=== PATIENT | female | born 1985 | race Caucasian/White ===

== ENCOUNTER 2018-09-21 13:01 | Inpatient (IN) | payer OTHER ==
[2018-09-21] MEDS ORDERED: Nalbuphine 20 MG/ML 1 ML Syringe IVPUSH PRN (13:23)
[2018-09-21] MEDS ORDERED: Lidocaine 1% 50 ML MDV INJECT ONE (13:23)
[2018-09-21] MEDS ORDERED: Sodium Chloride 0.9% 10 ML Syringe FLUSH PRN (13:23)
[2018-09-21] MEDS ORDERED: Ondansetron 4 MG/2 ML SDV IVPUSH PRN ×2 (13:23→14:13)
[2018-09-21] MEDS ORDERED: Oxytocin/Lactated Ringers 10 UNIT/1,000 ML BAG IV SCH ×2 (13:30→16:00)
[2018-09-21] MEDS: Lactated Ringers 1,000 ML IV SCH ×3 (13:49→19:31)
[2018-09-21] MEDS ORDERED: Ampicillin 2 GM in Sodium Chloride 0.9% 100 ML IV ONE (14:00)
[2018-09-21] MEDS ORDERED: ePHEDrine 50 MG/ML SDV IVPUSH PRN (14:13)
[2018-09-21] MEDS ORDERED: diphenhydrAMINE 50 MG/ML SDV IVPUSH PRN (14:13)
[2018-09-21] MEDS ORDERED: fentaNYL/Bupivacaine-NS 2 MCG/ML-0.125%/PF 100 ML Bag EPIDUR PRN (14:13)
[2018-09-21] MEDS ORDERED: fentaNYL 100 MCG/2 ML SDV EPIDUR PRN (14:13)
--- NOTE | 2018-09-21 17:15 | PCM.LDHP ---
L&D History of Present Illness - General Date of Service: 09/21/18 Admit Problem/Dx: Patient Status Order with Admit Dx/Problem 09/21/18 13:24 Patient Status [ADT] Routine Admission Diagnosis/Problem Admission Diagnosis/Problem Normal labor Source of Information: Patient History Limitations: Reports: No Limitations - History of Present Illness Introduction:: Patient is a 32 y/o at 36 3/7 wks who presents with PROM. Doing well since. Occurred at about 1300 today. No other issues. 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 Para: 2 LMP (Approximate): - Past Surgical History HEENT Surgical History: Reports: Tonsillectomy Social & Family History - Family History Family Medical History: Noncontributory - Tobacco Use Smoking Status *Q: Never Smoker - Caffeine Use Caffeine Use: Reports: None - Alcohol Use Alcohol Use History: No - Recreational Drug Use Recreational Drug Use: No H&P Review of Systems - Review of Systems: Review Of Systems: See Below General: Reports: No Symptoms Pulmonary: Reports: No Symptoms Cardiovascular: Reports: No Symptoms Gastrointestinal: Reports: No Symptoms Genitourinary: Reports: No Symptoms Musculoskeletal: Reports: No Symptoms Psychiatric: Reports: No Symptoms L&D Exam - Exam Exam: See Below - Vital Signs Vital Signs: Last Vital Signs Temp 37.2 C 09/21/18 13:48 Pulse 77 09/21/18 16:24 Resp 16 09/21/18 13:48 BP 129/78 09/21/18 16:24 Pulse Ox 99 09/21/18 13:48 Weight: 86.364 kg - OB Specific Contraction Intensity: Irritability Movement: Active Heart Tones: Present Heart Tones per Min: 135 Heart Rate (FHR) Variability: Moderate (6-25 bmp) Presentation: Vertex - Patel Score Patel Score Cervix Position: Midposition Patel Score Consistency: Soft Patel Score Effacement: 51-70% Patel Score Dilation: 1-2 cm Patel Score Infant's Station: -2 Patel Score Total: 7 - Exam General: Alert, Oriented, Cooperative Lungs: Clear to Auscultation, Normal Respiratory Effort Cardiovascular: Regular Rate, Regular Rhythm GI/Abdominal Exam: Soft, Non-Tender Genitourinary: Normal external exam Extremities: Normal Inspection Skin: Warm, Dry, Intact - Patient Data Lab Results Last 24 hrs: Laboratory Results - last 24 hr 09/21/18 Range/Units 13:28 WBC 9.22 (3.98-10.04) K/mm3 RBC 4.33 (3.98-5.22) M/mm3 Hgb 13.8 (11.2-15.7) gm/L Hct 39.4 (34.1-44.9) % MCV 91.0 (79.4-94.8) fl MCH 31.9 (25.6-32.2) pg MCHC 35.0 (32.2-35.5) g/dl RDW Std Deviation 43.0 (36.4-46.3) fL Plt Count 169 L (182-369) K/mm3 MPV 9.4 (9.4-12.3) fl Neut % (Auto) 73.1 H (34.0-71.1) % Lymph % (Auto) 19.3 (19.3-51.7) % [place] % (Auto) 6.1 (4.7-12.5) % Eos % (Auto) 0.4 L (0.7-5.8) Baso % (Auto) 0.2 (0.1-1.2) % Neut # (Auto) 6.74 H (1.56-6.13) K/mm3 Lymph # (Auto) 1.78 (1.18-3.74) K/mm3 [place] # (Auto) 0.56 H (0.24-0.36) K/mm3 Eos # (Auto) 0.04 (0.04-0.36) K/mm3 Baso # (Auto) 0.02 (0.01-0.08) K/mm3 Result Diagrams: 09/21/18 13:28 - Problem List (1) 36 weeks gestation of SNOMED Code(s): 94727089 ICD Code: Z3A.36 - 36 WEEKS GESTATION OF Status: Acute Current Visit: Yes (2) PROM (premature rupture of membranes) SNOMED Code(s): 97951442 ICD Code: O42.90 - ELIZBAETH ROM, 7TH0 BETW RUPT & ONST LABR, UNSP WEEKS OF GEST Status: Acute Current Visit: Yes Qualifiers: PROM onset of labor timing: unspecified duration between rupture of membranes and onset of labor PROM gestational age: -third trimester Qualified Code(s): O42.913 - premature rupture of membranes, unspecified as to length of time between rupture and onset of labor, third trimester (3) GBS carrier SNOMED Code(s): 0012750263622 ICD Code: Z22.330 - CARRIER OF GROUP B STREPTOCOCCUS Status: Acute Current Visit: Yes Problem List Initiated/Reviewed/Updated: Yes Orders Last 24hrs: Active Orders 24 hr Category Date Time Status Patient Status [ADT] Routine ADT 09/21/18 13:24 Active Activity as Tolerated [RC] PFP Care 09/21/18 13:24 Active Communication Order [RC] ASDIRECTED Care 09/21/18 13:24 Active Heart Tones [RC] ASDIRECTED Care 09/21/18 13:24 Active Non Stress Test [RC] PER UNIT ROUTINE Care 09/21/18 13:24 Active Notify Provider [RC] ASDIRECTED Care 09/21/18 14:13 Active Notify Provider [RC] PFP Care 09/21/18 13:24 Active Notify Provider [RC] PRN Care 09/21/18 13:24 Active Peripheral IV Care [RC] . DIRECTED Care 09/21/18 13:24 Active Vital Signs [RC] PER UNIT ROUTINE Care 09/21/18 13:24 Active Regular Diet [DIET] Diet 09/21/18 Lunch Active RAPID PLASMA REAGIN,RPR [CHEM] Routine Lab 09/21/18 13:28 Received Ampicillin 1 gm Med 09/21/18 18:00 Active Sodium Chloride 0.9% [Normal Saline] 100 ml IV Q4H Lactated Ringers [Ringers, Lactated] 1,000 ml Med 09/21/18 13:30 Active IV ASDIRECTED Nalbuphine [Nubain] Med 09/21/18 13:23 Active 10 mg IVPUSH Q2H PRN Ondansetron [Zofran] Med 09/21/18 14:13 Active 4 mg IVPUSH ONETIME PRN Ondansetron [Zofran] Med 09/21/18 13:23 Active 4 mg IVPUSH Q4H PRN Oxytocin/Lactated Ringers [Pitocin in LR 10 Units/1,000 Med 09/21/18 13:30 Active ML] 10 unit in 1,000 ml IV .CONTINUOUS Oxytocin/Lactated Ringers [Pitocin in LR 10 Units/1,000 Med 09/21/18 16:00 Active ML] 10 unit in 1,000 ml IV TITRATE Sodium Chloride 0.9% [Saline Flush] Med 09/21/18 13:23 Active 10 ml FLUSH ASDIRECTED PRN diphenhydrAMINE [Benadryl] Med 09/21/18 14:13 Active 25 mg IVPUSH Q6H PRN ePHEDrine [ePHEDrine sulfate] Med 09/21/18 14:13 Active 5 mg IVPUSH ASDIRECTED PRN fentaNYL [Sublimaze] Med 09/21/18 14:13 Active 100 mcg EPIDUR ONETIME PRN fentaNYL/Bupivacaine/NS/PF [xdhjtBXA-Azvcu-SW 2 MCG/ML- Med 09/21/18 14:13 Active 0.125%] 100 ml EPIDUR ASDIRECTED PRN Electronic Heart Tones Ext w TOCO [WOMSER] Oth 09/21/18 13:24 Ordered Routine Electronic Heart Tones Internal [WOMSER] Per Unit Oth 09/21/18 13:24 Ordered Routine Peripheral IV Insertion Adult [OM.PC] Routine Oth 09/21/18 13:24 Ordered Resuscitation Status Routine Resus Stat 09/21/18 13:23 Ordered Medication Orders Diphenhydramine HCl (Benadryl) 25 mg IVPUSH Q6H PRN PRN Reason: Pruritis Ephedrine Sulfate (Ephedrine Sulfate) 5 mg IVPUSH ASDIRECTED PRN PRN Reason: Hypotension Fentanyl (Sublimaze) 100 mcg EPIDUR ONETIME PRN PRN Reason: Pain Fentanyl/Bupivacaine HCl (Fmpxmbsd-Oaayf-Hh 2 Mcg/Ml-0.125%) 100 ml EPIDUR ASDIRECTED PRN PRN Reason: Pain (severe 7-10) Ampicillin Sodium 1 gm/ Sodium (Chloride) 100 mls @ 200 mls/hr IV Q4H TYLER Lactated Ringer's (Ringers, Lactated) 1,000 mls @ 100 mls/hr IV ASDIRECTED TYLER Last Admin: 09/21/18 13:49 Dose: 100 mls/hr Oxytocin/Lactated Ringer's (Pitocin In Lr 10 Units/1,000 Ml) 10 unit in 1,000 mls @ 500 mls/hr IV .CONTINUOUS TYLER Oxytocin/Lactated Ringer's (Pitocin In Lr 10 Units/1,000 Ml) 10 unit in 1,000 mls @ 12 mls/hr IV TITRATE TYLER; Protocol Last Titration: 09/21/18 16:44 Dose: 4 munits/min, 24 mls/hr Admin: 09/21/18 16:19 Dose: 2 munits/min, 12 mls/hr Nalbuphine HCl (Nubain) 10 mg IVPUSH Q2H PRN PRN Reason: pain Ondansetron HCl (Zofran) 4 mg IVPUSH Q4H PRN PRN Reason: Nausea/Vomiting Ondansetron HCl (Zofran) 4 mg IVPUSH ONETIME PRN PRN Reason: Nausea/Vomiting Sodium Chloride (Saline Flush) 10 ml FLUSH ASDIRECTED PRN PRN Reason: Keep Vein Open Assessment/Plan Comment:: 32 y/o at 36 3/7 wks presents with PROM * Labs * GBS positive, getting ampicillin * Now that almost 4 hours treated with start pitocin for augmentation * Pain management per patient preference * anticipate
[2018-09-21] MEDS ORDERED: Ampicillin 1 GM in Sodium Chloride 0.9% 100 ML IV SCH (18:00)
--- NOTE | 2018-09-21 19:20 | PCM.PREANE ---
Preanesthetic Assessment - Anesthesia/Transfusion/Family Hx Anesthesia History: Prior Anesthesia Without Reaction Family History of Anesthesia Reaction: No Transfusion History: No Prior Transfusion(s) - Review of Systems General: No Symptoms Pulmonary: No Symptoms Cardiovascular: No Symptoms Gastrointestinal: No Symptoms Neurological: No Symptoms Other: Reports: None - Physical Assessment Pulse: 77 O2 Sat by Pulse Oximetry: 99 Respiratory Rate: 16 Blood Pressure: 129/78 Vital Signs: Last Vital Signs Temp 37.2 C 09/21/18 13:48 Pulse 77 09/21/18 16:24 Resp 16 09/21/18 13:48 BP 129/78 09/21/18 16:24 Pulse Ox 99 09/21/18 13:48 Height: 1.68 m Weight: 86.364 kg ASA Class: 2 Mental Status: Alert & Oriented x3 Airway Class: Mallampati = 1 Dentition: Reports: Normal Dentition Thyro-Mental Finger Breadths: 3 Mouth Opening Finger Breadths: 3 ROM/Head Extension: Full Lungs: Clear to Auscultation, Normal Respiratory Effort Cardiovascular: Regular Rate, Regular Rhythm - Lab Values: Laboratory Last Values WBC 9.22 K/mm3 (3.98-10.04) 09/21/18 13:28 RBC 4.33 M/mm3 (3.98-5.22) 09/21/18 13:28 Hgb 13.8 gm/L (11.2-15.7) 09/21/18 13:28 Hct 39.4 % (34.1-44.9) 09/21/18 13:28 MCV 91.0 fl (79.4-94.8) 09/21/18 13:28 MCH 31.9 pg (25.6-32.2) 09/21/18 13:28 MCHC 35.0 g/dl (32.2-35.5) 09/21/18 13:28 RDW Std Deviation 43.0 fL (36.4-46.3) 09/21/18 13:28 Plt Count 169 K/mm3 (182-369) L 09/21/18 13:28 MPV 9.4 fl (9.4-12.3) 09/21/18 13:28 Neut % (Auto) 73.1 % (34.0-71.1) H 09/21/18 13:28 Lymph % (Auto) 19.3 % (19.3-51.7) 09/21/18 13:28 [place] % (Auto) 6.1 % (4.7-12.5) 09/21/18 13:28 Eos % (Auto) 0.4 (0.7-5.8) L 09/21/18 13:28 Baso % (Auto) 0.2 % (0.1-1.2) 09/21/18 13:28 Neut # (Auto) 6.74 K/mm3 (1.56-6.13) H 09/21/18 13:28 Lymph # (Auto) 1.78 K/mm3 (1.18-3.74) 09/21/18 13:28 [place] # (Auto) 0.56 K/mm3 (0.24-0.36) H 09/21/18 13:28 Eos # (Auto) 0.04 K/mm3 (0.04-0.36) 09/21/18 13: Baso # (Auto) 0.02 K/mm3 (0.01-0.08) 09/21/18 13:28 - Allergies Allergies/Adverse Reactions: Allergies Allergy/AdvReac Type Severity Reaction Status Date / Time No Known Allergies Allergy Verified 09/21/18 13:23 - Acknowledgements Anesthesia Type Planned: Epidural Pt an Appropriate Candidate for the Planned Anesthesia: Yes Alternatives and Risks of Anesthesia Discussed w Pt/Guardian: Yes Pt/Guardian Understands and Agrees with Anesthesia Plan: Yes PreAnesthesia 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: - Past Surgical History HEENT Surgical History: Reports: Tonsillectomy - SUBSTANCE USE Smoking Status *Q: Never Smoker Recreational Drug Use History: No - HOME MEDS Home Medications: Home Meds PNV95/Ferrous Fumarate/FA [ Tablet] 1 each PO DAILY 09/21/18 [History] - CURRENT (IN HOUSE) MEDS Current Meds: Current Medications Diphenhydramine HCl (Benadryl) 25 mg IVPUSH Q6H PRN PRN Reason: Pruritis Ephedrine Sulfate (Ephedrine Sulfate) 5 mg IVPUSH ASDIRECTED PRN PRN Reason: Hypotension Fentanyl (Sublimaze) 100 mcg EPIDUR ONETIME PRN PRN Reason: Pain Fentanyl/Bupivacaine HCl (Wnzivxyc-Mzjrc-Zi 2 Mcg/Ml-0.125%) 100 ml EPIDUR ASDIRECTED PRN PRN Reason: Pain (severe 7-10) Ampicillin Sodium 1 gm/ Sodium (Chloride) 100 mls @ 200 mls/hr IV Q4H [facility] Last Admin: 09/21/18 17:35 Dose: 200 mls/hr Lactated Ringer's (Ringers, Lactated) 1,000 mls @ 100 mls/hr IV ASDIRECTED TYLER Last Admin: 09/21/18 18:33 Dose: 100 mls/hr Oxytocin/Lactated Ringer's (Pitocin In Lr 10 Units/1,000 Ml) 10 unit in 1,000 mls @ 500 mls/hr IV .CONTINUOUS TYLER Oxytocin/Lactated Ringer's (Pitocin In Lr 10 Units/1,000 Ml) 10 unit in 1,000 mls @ 12 mls/hr IV TITRATE TYLER; Protocol Last Titration: 09/21/18 17:30 Dose: 5 munits/min, 30 mls/hr Nalbuphine HCl (Nubain) 10 mg IVPUSH Q2H PRN PRN Reason: pain Ondansetron HCl (Zofran) 4 mg IVPUSH Q4H PRN PRN Reason: Nausea/Vomiting Ondansetron HCl (Zofran) 4 mg IVPUSH ONETIME PRN PRN Reason: Nausea/Vomiting Sodium Chloride (Saline Flush) 10 ml FLUSH ASDIRECTED PRN PRN Reason: Keep Vein Open Discontinued Medications Ampicillin Sodium 2 gm/ Sodium (Chloride) 100 mls @ 200 mls/hr IV ONETIME ONE Stop: 09/21/18 14:29 Last Admin: 09/21/18 13:49 Dose: 200 mls/hr Lidocaine HCl (Xylocaine 1%) 50 ml INJECT ASDIRECTED ONE Stop: 09/21/18 13:24
--- NOTE | 2018-09-21 21:03 | PCM.SN ---
- Free Text/Narrative Note: Stage I - Patient presented with PROM. Contractions became more painful. Progressed to complete with epidural and overall reassuring FHT. Stage II - of viable female, weight 5#8oz, apgars 8/9 at 2024. Head delivered in controlled manner over intact perineum. Body and shoulders followed without difficultly. Baby placed on maternal abdomen. Positive cry. Cord clamped and cut. Stage III - of intact placenta. 3VC. Small 1st degree repaired with 3-0 vicryl. EBL 100.
[2018-09-21] MEDS ORDERED: Docusate Sodium 100 MG Cap PO PRN (21:08)
[2018-09-21] MEDS ORDERED: Witch Hazel Medicated Pads 40/Jar TOP PRN (21:08)
[2018-09-21] MEDS ORDERED: Lanolin 100% Cream 7 GM Tube TOP PRN (21:08)
[2018-09-21] MEDS ORDERED: Benzocaine/Menthol 20%-0.5% Spray 56 GM Canister TOP PRN (21:08)
[2018-09-21] MEDS ORDERED: Bupivacaine 0.25% 10 ML SDV ONE (22:00)
[2018-09-22] MEDS: Ibuprofen 600 MG Tab PO PRN ×4 (00:37→21:33)
--- NOTE | 2018-09-22 03:54 | PCM.PNPP ---
- General Info Date of Service: 09/22/18 Functional Status: Reports: Pain Controlled - Review of Systems General: Reports: No Symptoms HEENT: Reports: No Symptoms Pulmonary: Reports: No Symptoms Cardiovascular: Reports: No Symptoms Gastrointestinal: Reports: No Symptoms Genitourinary: Reports: No Symptoms Musculoskeletal: Reports: No Symptoms Skin: Reports: No Symptoms Neurological: Reports: No Symptoms Psychiatric: Reports: No Symptoms - General Info Date of Service: 09/22/18 - Patient Data Vital Signs - Most Recent: Last Vital Signs Temp 36.7 C 09/21/18 23:33 Pulse 62 09/21/18 23:33 Resp 16 09/21/18 23:33 BP 137/36 L 09/21/18 23:33 Pulse Ox 98 09/21/18 23:33 Weight - Most Recent: 86.364 kg I&O - Last 24 Hours: Intake & Output 09/21/18 09/21/18 09/22/18 14:59 22:59 06:59 Intake Total 100 3560 Balance 100 3560 Lab Results - Last 24 Hours: Laboratory Results - last 24 hr 09/21/18 Range/Units 13:28 WBC 9.22 (3.98-10.04) K/mm3 RBC 4.33 (3.98-5.22) M/mm3 Hgb 13.8 (11.2-15.7) gm/L Hct 39.4 (34.1-44.9) % MCV 91.0 (79.4-94.8) fl MCH 31.9 (25.6-32.2) pg MCHC 35.0 (32.2-35.5) g/dl RDW Std Deviation 43.0 (36.4-46.3) fL Plt Count 169 L (182-369) K/mm3 MPV 9.4 (9.4-12.3) fl Neut % (Auto) 73.1 H (34.0-71.1) % Lymph % (Auto) 19.3 (19.3-51.7) % [place] % (Auto) 6.1 (4.7-12.5) % Eos % (Auto) 0.4 L (0.7-5.8) Baso % (Auto) 0.2 (0.1-1.2) % Neut # (Auto) 6.74 H (1.56-6.13) K/mm3 Lymph # (Auto) 1.78 (1.18-3.74) K/mm3 [place] # (Auto) 0.56 H (0.24-0.36) K/mm3 Eos # (Auto) 0.04 (0.04-0.36) K/mm3 Baso # (Auto) 0.02 (0.01-0.08) K/mm3 Med Orders - Current: Current Medications Benzocaine/Menthol (Dermoplast Pain Relief [place]) 0 gm TOP ASDIRECTED PRN PRN Reason: Perineal Comfort Measure Docusate Sodium (Colace) 100 mg PO BID PRN PRN Reason: Constipation Emollient Ointment (Lansinoh Hpa) 0 gm TOP ASDIRECTED PRN PRN Reason: Sore Nipples Ibuprofen (Motrin) 600 mg PO Q6H PRN PRN Reason: Mild pain or fever Last Admin: 09/22/18 00:37 Dose: 600 mg Witch Sherley (Tucks) 1 pad TOP ASDIRECTED PRN PRN Reason: Pain Discontinued Medications Diphenhydramine HCl (Benadryl) 25 mg IVPUSH Q6H PRN PRN Reason: Pruritis Ephedrine Sulfate (Ephedrine Sulfate) 5 mg IVPUSH ASDIRECTED PRN PRN Reason: Hypotension Fentanyl (Sublimaze) 100 mcg EPIDUR ONETIME PRN PRN Reason: Pain Last Admin: 09/21/18 19:20 Dose: 100 mcg Fentanyl/Bupivacaine HCl (Eszoeaig-Djbwb-Ww 2 Mcg/Ml-0.125%) 100 ml EPIDUR ASDIRECTED PRN PRN Reason: Pain (severe 7-10) Last Admin: 09/21/18 19:21 Dose: 100 ml Ampicillin Sodium 2 gm/ Sodium (Chloride) 100 mls @ 200 mls/hr IV ONETIME ONE Stop: 09/21/18 14:29 Last Admin: 09/21/18 13:49 Dose: 200 mls/hr Ampicillin Sodium 1 gm/ Sodium (Chloride) 100 mls @ 200 mls/hr IV Q4H [facility] Last Admin: 09/21/18 17:35 Dose: 200 mls/hr Lactated Ringer's (Ringers, Lactated) 1,000 mls @ 100 mls/hr IV ASDIRECTED [facility] Last Admin: 09/21/18 19:31 Dose: 100 mls/hr Oxytocin/Lactated Ringer's (Pitocin In Lr 10 Units/1,000 Ml) 10 unit in 1,000 mls @ 500 mls/hr IV .CONTINUOUS TYLER Oxytocin/Lactated Ringer's (Pitocin In Lr 10 Units/1,000 Ml) 10 unit in 1,000 mls @ 12 mls/hr IV TITRATE TYLER; Protocol Last Titration: 09/21/18 20:25 Dose: 999 munits/min, 5,994 mls/hr Lidocaine HCl (Xylocaine 1%) 50 ml INJECT ASDIRECTED ONE Stop: 09/21/18 13:24 Nalbuphine HCl (Nubain) 10 mg IVPUSH Q2H PRN PRN Reason: pain Ondansetron HCl (Zofran) 4 mg IVPUSH Q4H PRN PRN Reason: Nausea/Vomiting Ondansetron HCl (Zofran) 4 mg IVPUSH ONETIME PRN PRN Reason: Nausea/Vomiting Sodium Chloride (Saline Flush) 10 ml FLUSH ASDIRECTED PRN PRN Reason: Keep Vein Open - Interaction Infant Disposition, : [place] to Nursery Support Person: - Exam General: Alert, Oriented HEENT: Pupils Equal Neck: Supple Lungs: Clear to Auscultation, Normal Respiratory Effort Cardiovascular: Regular Rate, Regular Rhythm GI/Abdominal Exam: Normal Bowel Sounds, Soft, Non-Tender, No Organomegaly, No Distention, No Abnormal Bruit, No Mass, Pelvis Stable Extremities: Normal Inspection, Normal Range of Motion, Non-Tender, No Pedal Edema, Normal Capillary Refill Skin: Intact Neurological: No New Focal Deficit Psy/Mental Status: Alert, Normal Affect, Normal Mood - Problem List Review Problem List Initiated/Reviewed/Updated: Yes - My Orders Last 24 Hours: My Active Orders 09/21/18 21:08 Activity as Tolerated [RC] PER UNIT ROUTINE Vital Signs [RC] 03,09,15,21 Benzocaine/Menthol [Dermoplast Pain Relief [place]] See Dose Instructions TOP ASDIRECTED PRN Docusate Sodium [Colace] 100 mg PO BID PRN Ibuprofen [Motrin] 600 mg PO Q6H PRN Lanolin [Lansinoh HPA] See Dose Instructions TOP ASDIRECTED PRN Witch Sherley [Tucks] 1 pad TOP ASDIRECTED PRN Assess Lochia [WOMSER] Per Unit Routine Assess Uterine Involution [WOMSER] Per Unit Routine Breast Pump [WOMSER] Per Unit Routine Heat Therapy [OM.PC] PRN Medication Administration Instruction [OM.PC] Routine Perineal Care [OM.PC] Per Unit Routine Sitz Bath [OM.PC] Per Unit Routine 09/22/18 21:08 Heat Therapy [OM.PC] PRN - Assessment Assessment:: PPD 1 s/p at 36 weeks. - Plan Plan:: 32 y/o s/p at 36 3/7 wks Doing well. No issues.
--- NOTE | 2018-09-22 07:45 | PCM48HPAN ---
Post Anesthesia Note - EVALUATION WITHIN 48HRS OF ANESTHETIC Vital Signs in Normal Range: Yes Patient Participated in Evaluation: Yes Respiratory Function Stable: Yes Airway Patent: Yes Cardiovascular Function Stable: Yes Hydration Status Stable: Yes Pain Control Satisfactory: Yes Nausea and Vomiting Control Satisfactory: Yes Mental Status Recovered: Yes Pulse Rate: 72 Resp Rate: 16 Temperature: 36.7 C Blood Pressure: 127/80 - COMMENTS/OBSERVATIONS Free Text/Narrative:: no anesthesia complications noted
[2018-09-23] MEDS: Ibuprofen 600 MG Tab PO PRN ×2 (03:58→11:55)
--- NOTE | 2018-09-23 10:48 | PCM.DCSUM1 ---
Discharge Summary - Hospital Course Free Text/Narrative:: Patient is a 32 y/o at 36 3/7 wks who presents with PROM. Doing well since. Occurred at about 1300 today. No other issues. Only experiencing mild contractions Patient went on to have normal vaginal delivery. Female . She is breast- feeding. She is ambulating well, has minimal lochia and is voiding without concerns. Is desiring discharge home. Diagnosis: Stroke: No - Discharge Data Discharge Date: 09/23/18 Discharge Disposition: Home, Self-Care 01 Condition: Good - Patient Instructions Diet: Regular Diet as Tolerated (Nursing diet with increase calories and calcium is recommended) Activity: As Tolerated (No intercourse or tampons until bleeding resolves) Driving: May Drive Today Showering/Bathing: May Shower (May take a bath) Notify Provider of: Fever, Increased Pain, Swelling and Redness, Nausea and/or Vomiting - Discharge Plan Home Medications: Home Meds PNV95/Ferrous Fumarate/FA [ Tablet] 1 each PO DAILY 09/21/18 [History] Ibuprofen [Motrin] 600 mg PO Q6H PRN tablet 09/23/18 [Rx] Referrals: Yaritza Lopez MD [Primary Care Provider] - (Return to clinicDr. Lopez4- 6 weeks.) - Discharge Summary/Plan Comment DC Time >30 min.: No Discharge Summary/Plan Comment: Discharge instructions: 1. Discharge home 2. Diet, activity and follow-up discussed with patient. Recommend nursing diet with increased calories and calcium. 3. Precautions given concern increased pain, bleeding, temperature, signs/ symptoms of DVT/PE. 4. Medications per home medication was printed, discussed with and given to the patient. [facility]. [facility] Diagnosis: Term -delivered Condition: Good - Patient Data Vitals - Most Recent: Last Vital Signs Temp 37.1 C 09/23/18 04:00 Pulse 62 09/23/18 04:00 Resp 14 09/23/18 04:00 BP 126/77 09/23/18 04:00 Pulse Ox 98 09/23/18 04:00 Weight - Most Recent: 86.364 kg I&O - Last 24 hours: Intake & Output 09/22/18 09/23/18 09/23/18 22:59 06:59 14:59 Intake Total 380 120 Balance 380 120 Lab Results - Last 24 hrs: Laboratory Results - last 24 hr 09/21/18 Range/Units 13:28 RPR Non-reactive (NONREACTIVE) Med Orders - Current: Current Medications Benzocaine/Menthol (Dermoplast Pain Relief [place]) 0 gm TOP ASDIRECTED PRN PRN Reason: Perineal Comfort Measure Docusate Sodium (Colace) 100 mg PO BID PRN PRN Reason: Constipation Emollient Ointment (Lansinoh Hpa) 0 gm TOP ASDIRECTED PRN PRN Reason: Sore Nipples Ibuprofen (Motrin) 600 mg PO Q6H PRN PRN Reason: Mild pain or fever Last Admin: 09/23/18 03:58 Dose: 600 mg Witch Sherley (Tucks) 1 pad TOP ASDIRECTED PRN PRN Reason: Pain Discontinued Medications Bupivacaine HCl (Sensorcaine-Mpf 0.25%) 10 ml .ROUTE .STK-MED ONE Stop: 09/21/18 22:01 Diphenhydramine HCl (Benadryl) 25 mg IVPUSH Q6H PRN PRN Reason: Pruritis Ephedrine Sulfate (Ephedrine Sulfate) 5 mg IVPUSH ASDIRECTED PRN PRN Reason: Hypotension Fentanyl (Sublimaze) 100 mcg EPIDUR ONETIME PRN PRN Reason: Pain Last Admin: 09/21/18 19:20 Dose: 100 mcg Fentanyl/Bupivacaine HCl (Jfljsxbv-Baixt-De 2 Mcg/Ml-0.125%) 100 ml EPIDUR ASDIRECTED PRN PRN Reason: Pain (severe 7-10) Last Admin: 09/21/18 19:21 Dose: 100 ml Ampicillin Sodium 2 gm/ Sodium (Chloride) 100 mls @ 200 mls/hr IV ONETIME ONE Stop: 09/21/18 14:29 Last Admin: 09/21/18 13:49 Dose: 200 mls/hr Ampicillin Sodium 1 gm/ Sodium (Chloride) 100 mls @ 200 mls/hr IV Q4H [facility] Last Admin: 09/21/18 17:35 Dose: 200 mls/hr Lactated Ringer's (Ringers, Lactated) 1,000 mls @ 100 mls/hr IV ASDIRECTED [facility]YLER Last Admin: 09/21/18 19:31 Dose: 100 mls/hr Oxytocin/Lactated Ringer's (Pitocin In Lr 10 Units/1,000 Ml) 10 unit in 1,000 mls @ 500 mls/hr IV .CONTINUOUS TYLER Oxytocin/Lactated Ringer's (Pitocin In Lr 10 Units/1,000 Ml) 10 unit in 1,000 mls @ 12 mls/hr IV TITRATE TYLER; Protocol Last Titration: 09/21/18 20:25 Dose: 999 munits/min, 5,994 mls/hr Lidocaine HCl (Xylocaine 1%) 50 ml INJECT ASDIRECTED ONE Stop: 09/21/18 13:24 Nalbuphine HCl (Nubain) 10 mg IVPUSH Q2H PRN PRN Reason: pain Ondansetron HCl (Zofran) 4 mg IVPUSH Q4H PRN PRN Reason: Nausea/Vomiting Ondansetron HCl (Zofran) 4 mg IVPUSH ONETIME PRN PRN Reason: Nausea/Vomiting Sodium Chloride (Saline Flush) 10 ml FLUSH ASDIRECTED PRN PRN Reason: Keep Vein Open
== END 2018-09-23 17:00 | disposition home or self-care (01) | DRG 807 ==
LOC: JD.OBCHECK 13:01 → JD.OB 13:16 → JD.OBCHECK 13:23 → JD.OB 13:24 → OBSVTOIN 20:25 → JD.OB 20:26
PROVIDERS: ADMIT Obstetrics & Gynecology; ATTEND Obstetrics & Gynecology
PROC: 0HQ9XZZ Repair Perineum Skin, External Approach (ICD-10-PCS; principal; 2018-09-21)
PROC: 10E0XZZ Delivery of Products of Conception, External Approach (ICD-10-PCS; principal; 2018-09-21)
PROC: 3E0R3BZ Introduction of Anesthetic Agent into Spinal Canal, Percutaneous Approach (ICD-10-PCS; 2018-09-21)
PROC: 00HU33Z Insertion of Infusion Device into Spinal Canal, Percutaneous Approach (ICD-10-PCS; 2018-09-21)
DX: O42.913 Preterm premature rupture of membranes, unspecified as to length of time between rupture and onset of labor, third trimester (principal); Z37.0 Single live birth; Z3A.36 36 weeks gestation of pregnancy; O99.824 Streptococcus B carrier state complicating childbirth; O70.0 First degree perineal laceration during delivery
CPT/HCPCS: 36415; 59025; 59409; 85025; 86592; A9270-GY; J0290; J2590; J3010; J3490; J7030; J7120

== ENCOUNTER 2023-07-10 16:23 | Emergency (ER) | payer OTHER ==
[2023-07-10] MEDS: methylPREDNISolone Sodium Succinate 125 MG/2 ML SDV IVPUSH ONE (16:35)
[2023-07-10] MEDS: Sodium Chloride 0.9% 10 ML Syringe FLUSH PRN (16:37)
[2023-07-10] MEDS: Famotidine 20 MG/2 ML SDV IVPUSH ONE (16:38)
== END 2023-07-10 17:15 | disposition home or self-care (01) ==
LOC: JD.ED 16:23
DX: T78.40XA Allergy, unspecified, initial encounter (principal)
CPT/HCPCS: 96374; 96375; 99283; J2930; J3490